=== PATIENT | female | born 1980 | race Caucasian/White ===

== ENCOUNTER → 2017-07-27 11:10 | Outpatient (CLI) | payer OTHER, SELFPAY ==
--- NOTE | 2017-07-27 15:33 | STRESSREP ---
Stress Test Report Treadmill EKG: Resting EKG: Normal sinus rhythm, normal axis, normal intervals, no evidence of previous myocardial infarction. Treadmill EKG: The patient exercised according to a [place] protocol for 10 minutes and 0 seconds achieving a maximum workload of 11.7 METS. Resting heart rate was initially 64 beats minute kaity to maximum 171 beats a minute which represents 94% of the maximal predicted heart rate. Resting blood pressure was 110/68 and kaity to maximum 148/80, and test was terminated due to leg discomfort. During exercise the patient's heart rate increased as expected. Patient has subtle upsloping ST segment depression which did not reach criteria for ischemia. Patient had no arrhythmias noted. No anginal symptoms noted. Conclusions normal adequate treadmill EKG. Negative for ischemia by EKG criteria.8 no anginal symptoms noted. No arrhythmias noted. Average exercise capacity for age. Appropriate blood pressure response to exercise. Test terminated due to leg fatigue. No complications.
== END ==
PROVIDERS: Family Provider Family Medicine; PCP Family Medicine
DX: R06.09 Other forms of dyspnea (principal); R06.02 Shortness of breath
CPT/HCPCS: 93017

== ENCOUNTER 2017-10-20 08:45 | Outpatient (RCR) | payer OTHER, SELFPAY | END 2017-11-06 23:59 | LOC: NS 08:45 | PROVIDERS: Family Provider Family Medicine; PCP Family Medicine; Visit Provider Family Medicine | DX: E66.9 Obesity, unspecified (principal); Z68.33 Body mass index [BMI] 33.0-33.9, adult; Z71.3 Dietary counseling and surveillance | CPT/HCPCS: 97803 ==

== ENCOUNTER 2017-11-09 08:08 | Outpatient (RCR) | payer OTHER, SELFPAY | END 2017-12-07 23:59 | LOC: NS 08:08 | PROVIDERS: Family Provider Family Medicine; PCP Family Medicine; Visit Provider Family Medicine | DX: E66.9 Obesity, unspecified (principal); Z68.33 Body mass index [BMI] 33.0-33.9, adult; Z71.3 Dietary counseling and surveillance | CPT/HCPCS: 97803 ==

== ENCOUNTER 2018-01-04 08:00 | Outpatient (RCR) | payer OTHER, SELFPAY | END 2018-01-04 23:59 | LOC: NS 08:00 | PROVIDERS: Family Provider Family Medicine; PCP Family Medicine; Visit Provider Family Medicine | DX: E66.9 Obesity, unspecified (principal); Z68.33 Body mass index [BMI] 33.0-33.9, adult; Z71.3 Dietary counseling and surveillance | CPT/HCPCS: 97803 ==

== ENCOUNTER → 2018-09-11 | Outpatient (CLI) | payer SELFPAY ==
[2018-09-14 08:16] LABS: HPV APTIMA, High Risk Negative (Negative)
== END | disposition home or self-care (01) ==
LOC: LABSPEC 13:53
PROVIDERS: Visit Provider Obstetrics & Gynecology
DX: Z12.4 Encounter for screening for malignant neoplasm of cervix (principal)
CPT/HCPCS: 87624; 88175; G0145

== ENCOUNTER → 2018-09-19 | Outpatient (CLI) | payer SELFPAY ==
--- NOTE | 2018-09-19 06:58 | BI_ITS ---
MAMMOGRAPHY - BILATERAL SCREENING REASON FOR EXAM: Female, 38 years old. Routine annual screening examination. PERTINENT HISTORY: Grandmother with breast cancer. TECHNIQUE: Digital bilateral breast jennifer (3D mammographic acquisition) in the CC and MLO projections. 2-D mediolateral oblique (MLO) and craniocaudad (CC) views of both breasts were obtained. CAD: Full Field Digital Mammography with Computer Added Detection was performed. COMPARISON: None. Baseline examination. FINDINGS: Breast Composition: There are scattered areas of fibroglandular density. There are no dominant masses or suspicious calcifications. Findings suggest a small benign-appearing bilateral axillary lymph nodes. No other significant abnormalities are identified. BI/SCREEN MAMM (CAD) W/JENNIFER BILAT IMPRESSION: Negative screening mammogram. Yearly followup mammogram recommended. (A) ASSESSMENT CATEGORY: BIRADS Category 2: Benign. A letter regarding these results will be sent to the patient by the facility within 30 days. Approximately 10% of breast cancers are not detected by mammography. A normal mammogram should not delay biopsy of a clinically suspicious abnormality. [id number] Electronically Signed: Wisam Jovel, at 8:30 EDT , Service support ,
== END | disposition home or self-care (01) ==
PROVIDERS: Family Provider Family Medicine; PCP Family Medicine; Referring Provider Obstetrics & Gynecology; Visit Provider Obstetrics & Gynecology
DX: Z12.31 Encounter for screening mammogram for malignant neoplasm of breast (principal)
CPT/HCPCS: 77063; 77067

== ENCOUNTER → 2019-02-13 11:22 | Outpatient (CLI) | payer SELFPAY | PROVIDERS: Visit Provider Obstetrics & Gynecology | DX: Z11.3 Encounter for screening for infections with a predominantly sexual mode of transmission (principal) | CPT/HCPCS: 87491; 87591 ==

== ENCOUNTER → 2019-03-13 11:02 | Outpatient (CLI) | payer SELFPAY ==
[2019-03-13 14:00] LABS: Absolute Lymphocyte Count 3.08 X10^3/uL (0.83-4.51); Absolute Neutrophil Count 9.5 X10^3/uL (2.0-7.7); Basophil# 0.04 X10^3/uL; Basophil% 0.3 % (0-1); Eosinophils% 1.5 % (0-5); Hematocrit 42.4 % (37-47); Hemoglobin 14.3 g/dL (12.0-15.0); Lymphocyte # 3.08 X10^3/ul (4.0); Lymphocyte % 22.8 % (19-41); Mean Corp Hgb Conc 33.7 g/dL (32-36); Mean Corpuscular Hgb 30.2 pg (27.0-32.0); Mean Corpuscular Volume 89.6 fL (81-99); Monocyte# 0.67 X10^3/uL; NRBC Flagged by Analyzer 0 % (0-5); Neutrophil # 9.45 X10^3/uL (2.7-7.7); Platelet Count 225 K/mm3 (150-450); RBC Distribution Width SD 42.6 fl (35.1-43.9); Red Blood Count 4.73 M/mm3 (4.2-5.4); White Blood Count 13.5 K/mm3 (4.4-11.0)
[2019-03-13 14:10] LABS: Amphetamine Urine VISTA NEGATIVE (<1000 ng/mL); Barbiturate Urine VISTA NEGATIVE (< 200 ng/mL); Benzodiazepine Urine VISTA NEGATIVE (< 200 ng/mL); Cocaine Urine VISTA NEGATIVE (< 300 ng/mL); Ecstacy Urine VISTA NEGATIVE (< 500 ng/mL); Methadone Urine VISTA NEGATIVE (< 300 ng/mL); PCP Urine VISTA NEGATIVE (< 25 ng/mL); THC Urine VISTA NEGATIVE (< 50 ng/mL); Vista UDS pH Range 6
[2019-03-13 14:13] LABS: Thyroid Stim Hormone (TSH) 0.86 uIU/mL (0.358-3.74)
[2019-03-13 14:23] LABS: Color, Urine Yellow (Yellow); Glucose, Dipstick Normal (Normal); Ketone-Dipstick Negative (Negative); Leukocyte Esterase-Dipstick Negative /ul (Negative); Nitrite-Dipstick Negative (Negative); Occult Blood-Urine Negative /ul (Negative); Protein-Dipstick Negative (Negative); Urine Bilirubin Dipstick Negative (Negative); Urine Clarity Clear (Clear); Urine Urobilinogen Normal (Normal); Urine pH 6.5 (5.0 - 8.0)
[2019-03-13 15:31] LABS: Chlamydia Trachomatis by PCR Negative (Negative); Neisserai gonorrhoeae by PCR Negative (Negative); Probe Check PASS; Sample Adequacy Control PASS; Specimen Processing Control PASS
[2019-03-14 10:08] LABS: HIV - WCH Non-Reactive (Nonreactive); Hepatitis B Surface Antigen Non-Reactive (Nonreactive); Hepatitis C Antibody Non-Reactive (Nonreactive)
[2019-03-15 03:50] LABS: Prenatal RPR NONREACTIVE (NONREACTIVE)
== END ==
PROVIDERS: Visit Provider Obstetrics & Gynecology
DX: Z34.82 Encounter for supervision of other normal pregnancy, second trimester (principal)
CPT/HCPCS: 36415; 80307; 81002; 84443; 85025; 86703; 86762; 86803; 87340; 87491; 87591

== ENCOUNTER → 2019-06-20 09:07 | Outpatient (CLI) | payer SELFPAY ==
[2019-06-20 10:06] LABS: Hematocrit 36.9 % (37-47); Hemoglobin 12.7 g/dL (12.0-15.0); Mean Corp Hgb Conc 34.4 g/dL (32-36); Mean Corpuscular Hgb 31.7 pg (27.0-32.0); Mean Platelet Vol. 9.8 fl (6.2-12.0); Platelet Count 223 K/mm3 (150-450); RBC Distribution Width CV 13.2 % (11.6-14.6); RBC Distribution Width SD 44.4 fl (35.1-43.9); Red Blood Count 4.01 M/mm3 (4.2-5.4)
[2019-06-20 10:08] LABS: Glucose Challenge Gest 1H 50g 151 mg/dL (70-140)
== END ==
PROVIDERS: Referring Provider Obstetrics & Gynecology; Visit Provider Obstetrics & Gynecology
DX: Z34.83 Encounter for supervision of other normal pregnancy, third trimester (principal)
CPT/HCPCS: 36415; 82950; 85027

== ENCOUNTER → 2019-08-15 | Outpatient (CLI) | payer SELFPAY | END | disposition home or self-care (01) | LOC: LABSPEC 13:47 | PROVIDERS: PCP Family Medicine; Visit Provider Obstetrics & Gynecology | DX: Z36.85 Encounter for antenatal screening for Streptococcus B (principal) | CPT/HCPCS: 87081 ==

== ENCOUNTER 2019-09-04 18:50 | Inpatient (IN) | payer SELFPAY ==
[2019-09-04 10:51] VITALS: BMI 41.3
[2019-09-04 11:00] VITALS: BP 133/76; PULSE 82; TEMP 36.7
--- NOTE | 2019-09-04 12:30 | HP.PCM_ITS ---
- Problem List (1) 39 weeks gestation of Status: Acute (2) Advanced maternal age (AMA), 40 years or greater Status: Acute History Date of Admission: 09/04/19 Final MEAGAN: 09/10/19 Final MEAGAN Source: [place] <20 weeks Gestational age: 39 Weeks and 2 Days History of this : This is a 39 year-old, G [1], P [0], at 39 weeks gestational age. Allergies No Known Allergies Allergy (Verified 09/04/19 10:52) Home Medications: Home Medications Vits [Prenatabs FA ] 1 tab PO DAILY 09/04/19 Smoking Status: Former smoker Alcohol: None Number of Fetus(es): 1 NST - FHR Rate Baby A Baseline: 140 Variability:: Moderate Accelerations:: 15 x 15 Decelerations:: None NST Reactive:: Yes FHR Category:: Category I Uterine Activity:: Q7-10 irregular History Past Pregnancies: Past Pregnancies: None Labs: Course Did the patient receive Yes care? Labs Blood Type: O RH: POSITIVE RPR/VDRL/Syphilis Nonreactive Rubella status Immune HbSAg Negative Date Done: 03/13/19 Chlamydia Negative Gonorrhea Negative HIV/AIDS Non-Reactive Group B Strep: Negative Current Obstetrical History Gestational Diabetes No Incompetent Cervix No Infertility No IUGR No Macrosomia No Hypertension/Pre-eclampsia No Placenta Previa/Abruption No PTL/PROM No Uterine anomaly No Oligohydramnios No Polyhydramnios No Multiple gestation No Past Medical History Asthma No Diabetes No Hypertension No Heart disease No Mitral valve prolapse No Neurologic/Seizure disorder/ No Migraines Kidney disease No Liver disease No Varicosities No Clotting disorders/Hx of DVT No Thyroid Dysfunction No Other medical diseases Yes: PCOS Psychiatric disorders No Major trauma No Abnormal PAP smear No Sleep apnea No Mammogram in the last 2 years Yes: 2019 Social History Marital Status: Alleged father David Hx Smoking Yes Smoking Status Former smoker How long have you used n/a substances (years)? Expected Delivery Method: Spontaneous Vaginal Number of Visits: 12 Review of Systems Constitutional: Denies: Chills, Fever, Weight Change HEENT: Denies: Head Aches, Sinus Congestion, Sinus Drainage Cardiovascular: Denies: Chest Pain, Palpitations Respiratory: Denies: Cough, Shortness of breath at rest, Sputum production Gastrointestinal: Denies: Abdominal Pain, Nausea, Vomiting Genitourinary: Denies: Dysuria Musculoskeletal: Denies: Joint Pain, Joint Tenderness Skin: Denies: Rash, Wounds Neurological: Denies: Numbness, Tingling, Focal weakness Psychiatric: Denies: Anxiety, Depression, Homicidal Ideations, Suicidal Ideations Hematologic/ Lymphatic: Denies: Easy Bruising, Easy Bleeding Physical Exam Vitals: Vital Signs Temp Pulse BP 98.0 F 82 133/76 H 09/04/19 11:00 09/04/19 11:00 09/04/19 11:00 General: Alert, Oriented x3, No apparent distress HEENT: Atraumatic, Normocephalic. Negative for: Thyromegaly, Lymphadenopathy Cardiovascular: Regular rate, Regular Rhythm Lungs: Clear to auscultation Abdomen: Bowel Sounds Present, Gravid Neurological: Deep Tendon Reflexes 2+/4 and Symmetrical, Neuro grossly intact SHELLAC POLISHER: Normal external genitalia. Negative for: Vulvar lesions Estimated gestational size: Appropriate for gestational size Presentation: Cephalic Cervix Dilation (cm): 2 Station: -3 Effacement (%): 50 Assessment/Plan All Active Problems 39 weeks gestation of (Acute) Advanced maternal age (AMA), 40 years or greater (Acute) A/P: This is a 39 year-old, G [1], P [0], at 39 weeks gestational age. Induction scheduled tonight for AMA Reports UC started at 0330. Now irregular 7-10m SVE 2/50/-3 NST Category I Early labor Will admit inpatient Expect Procedure Criteria Procedure Type: Elective COVID Risk Discussion: The surgeon/proceduralist and patient have discussed in detail the risk of exposure to and/or potential harm posed by the COVID-19 virus with having a surgery/procedure at this time versus the risk of delaying the surgery/procedure. It is not possible to know either the risk of delaying the surgery or procedure or chance of getting an infection with perfect accuracy, but a joint decision was made between the patient and the surgeon/proceduralist to proceed at this time with the scheduled surgery/procedure as indicated on the consent form.
[2019-09-04 19:19] VITALS: BP 147/90; PULSE 106; O2SAT 99
[2019-09-04 19:20] VITALS: TEMP 36.4; O2SAT 98
[2019-09-04] MEDS: Lactated Ringers 1,000 ML 50 ML IV (19:30)
[2019-09-04 19:38] VITALS: BP 136/81; PULSE 88
[2019-09-04 19:43] LABS: Absolute Neutrophil Count 7.9 X10^3/uL (2.0-7.7); Basophil# 0.02 X10^3/uL; Basophil% 0.2 % (0-1); Eosinophil# 0.18 X10^3/uL; Eosinophils% 1.5 % (0-5); Hematocrit 37.3 % (37-47); Hemoglobin 12.9 g/dL (12.0-15.0); Lymphocyte % 22.8 % (19-41); Mean Corp Hgb Conc 34.6 g/dL (32-36); Mean Corpuscular Hgb 31.2 pg (27.0-32.0); Mean Corpuscular Volume 90.3 fL (81-99); Mean Platelet Vol. 9.7 fl (6.2-12.0); Monocyte# 0.96 X10^3/uL; Monocyte% 8.1 % (0-10); NRBC Flagged by Analyzer 0 % (0-5); Neutrophil # 7.88 X10^3/uL (2.7-7.7); Neutrophil % 66.7 % (47-70); Platelet Count 235 K/mm3 (150-450); RBC Distribution Width CV 13.2 % (11.6-14.6); RBC Distribution Width SD 42.7 fl (35.1-43.9); Red Blood Count 4.13 M/mm3 (4.2-5.4); White Blood Count 11.8 K/mm3 (4.4-11.0)
[2019-09-04] MEDS: miSOPROStol 25 MCG TABLET VAGINAL (20:14)
--- NOTE | 2019-09-04 20:50 | PCM.PN.OB ---
Patient Problems: Active and Suspected Problems 39 weeks gestation of (Acute) Advanced maternal age (AMA), 40 years or greater (Acute) Subjective: Rating contractions a 3/10, but very irregular still. Objective: SVE 50/-3. UC Q5-10m. NST Category I with FHR baseline 140, +accels, -decels, moderate variability. - Physical Exam Vitals/I&O's: Vital Signs Temp Pulse BP Pulse Ox 98.0 F 76 142/79 H 96 09/05/19 03:30 09/05/19 07:23 09/05/19 07:23 09/05/19 07:23 Weight: 95.9 kg Body Mass Index (BMI) 41.3 Intake and Output for Last 24 Hours 09/03/19 09/04/19 09/05/19 23:59 23:59 23:59 Intake Total 125 / 125 Balance 125 / 125 General: Alert, Oriented x3, Cooperative HEENT: Atraumatic, PERRLA, EOMI, Normocephalic Neck: Supple, No JVD, Negative Carotid Bruits Lungs: Clear to auscultation, Normal air movement Cardiovascular: Regular rate, No murmurs Abdomen: Bowel Sounds Present, Soft, Non Tender Extremities: No edema, Capillary Refill Less than 3 Seconds Skin: No rashes, No breakdown Musculoskeletal: No Tenderness to Palpation of Joints or Extremities Neurological: Cranial nerves II-XII grossly intact Psych/Mental Status: Normal Affect, Appropriate Laboratory Results 09/04/19 19:30: WBC 11.8 H, RBC 4.13 L, Hgb 12.9, Hct 37.3, MCV 90.3, MCH 31.2, MCHC 34.6, RDW Std Deviation 42.7, RDW Coeff of Liset 13.2, Plt Count 235, MPV 9.7, Immature Gran % (Auto) 0.700, Neut % (Auto) 66.7, Lymph % (Auto) 22.8, [place] % (Auto) 8.1, Eos % (Auto) 1.5, Baso % (Auto) 0.2, Absolute Neuts (auto) 7.9 H, Absolute Lymphs (auto) 2.70, Nucleated RBC % 0 09/04/19 19:30: Blood Type O POSITIVE, Antibody Screen NEGATIVE Current Medications Acetaminophen (Tylenol) 325 - 650 mg PO Q4H PRN PRN PRN Reason: Pain Score 1-3/10 Last Admin: 09/05/19 04:08 Dose: 650 mg Documented by: Al Hydroxide/Mg Hydroxide (Mylanta Ii) 15 - 30 ml PO Q4H PRN PRN PRN Reason: INDIGESTION Citric Acid/Sodium Citrate (Bicitra) 30 ml PO X1 PRN PRN Reason: Section Fentanyl Citrate (Sublimaze (100mcg Ampule)) 25 - 50 mcg IV Q2H PRN PRN PRN Reason: Pain Score 4-10/10 Lactated Ringer's () 500 mls @ 999 mls/hr IV .Q31M PRN PRN Reason: Epidural Lactated Ringer's () 500 mls @ 999 mls/hr IV .Q31M PRN PRN Reason: Corrective Measures Lactated Ringer's () 1,000 mls @ 50 mls/hr IV .Q20H [facility] Last Infusion: 09/04/19 22:00 Dose: 0 mls/hr Documented by: Misoprostol (Cytotec) 25 mcg VAGINAL Q4H [facility] Last Admin: 09/05/19 04:13 Dose: 25 mcg Documented by: Ondansetron HCl (Zofran) 4 mg IV Q4H PRN PRN PRN Reason: NAUSEA Prochlorperazine Edisylate (Compazine Iv) 10 mg IV Q6H PRN PRN PRN Reason: NAUSEA Sodium Chloride () 10 - 40 ml IV X1 PRN PRN Reason: SALINE FLUSH Medical Necessity - Tobacco Use Smoking Status: Former smoker Assessment/Plan All Active Problems 39 weeks gestation of (Acute) Advanced maternal age (AMA), 40 years or greater (Acute) A/P: Left earlier to go walking and out to eat, arrived back at 1900 SVE unchanged, Smith 4, Will start Cytotec 25mcg NST Category I Early labor with augmentation for AMA and Maternal obesity with BMI >[address] for
[2019-09-04 22:15] VITALS: TEMP 36.7; O2SAT 98
[2019-09-04 23:26] VITALS: BP 125/65; PULSE 75; TEMP 36.6; O2SAT 99
[2019-09-05] VITALS (23 sets, daily range): BP systolic 81–143; BP diastolic 45–83; PULSE 63–91; TEMP 36.3–37; O2SAT 96–100
[2019-09-05] MEDS: Acetaminophen 325 MG Tablet PO ×2 (00:12→04:08)
[2019-09-05] MEDS: miSOPROStol 25 MCG TABLET VAGINAL ×2 (00:13→04:13)
--- NOTE | 2019-09-05 08:07 | PN.OBGYN_ITS ---
Patient Problems: Active and Suspected Problems 39 weeks gestation of (Acute) Advanced maternal age (AMA), 40 years or greater (Acute) Subjective: Rating contractions as mild, cramping, 2/10. Feeling well. Will order breakfast and then is okay to start Pitocin. Objective: SVE outer os 2-3 with inner os 1cm with tunneling 2/50/-3 soft midposition. NST Category I FHR baseline 130, +accels, -decels, moderate variability. UC Q5-15 minutes. - Physical Exam Vitals/I&O's: Vital Signs Temp Pulse BP Pulse Ox 98.0 F 76 142/79 H 96 09/05/19 03:30 09/05/19 07:23 09/05/19 07:23 09/05/19 07:23 Weight: 95.9 kg Body Mass Index (BMI) 41.3 Intake and Output for Last 24 Hours 09/03/19 09/04/19 09/05/19 23:59 23:59 23:59 Intake Total 125 / 125 Balance 125 / 125 General: Alert, Oriented x3, Cooperative HEENT: Atraumatic, PERRLA, EOMI, Normocephalic Neck: Supple, No JVD, Negative Carotid Bruits Lungs: Clear to auscultation, Normal air movement Cardiovascular: Regular rate, No murmurs Abdomen: Bowel Sounds Present, Soft, Non Tender Extremities: No edema, Capillary Refill Less than 3 Seconds Skin: No rashes, No breakdown Musculoskeletal: No Tenderness to Palpation of Joints or Extremities Neurological: Cranial nerves II-XII grossly intact Psych/Mental Status: Normal Affect, Appropriate Laboratory Results 09/04/19 19:30: WBC 11.8 H, RBC 4.13 L, Hgb 12.9, Hct 37.3, MCV 90.3, MCH 31.2, MCHC 34.6, RDW Std Deviation 42.7, RDW Coeff of Liset 13.2, Plt Count 235, MPV 9.7, Immature Gran % (Auto) 0.700, Neut % (Auto) 66.7, Lymph % (Auto) 22.8, [place] % (Auto) 8.1, Eos % (Auto) 1.5, Baso % (Auto) 0.2, Absolute Neuts (auto) 7.9 H, Absolute Lymphs (auto) 2.70, Nucleated RBC % 0 09/04/19 19:30: Blood Type O POSITIVE, Antibody Screen NEGATIVE Current Medications Acetaminophen (Tylenol) 325 - 650 mg PO Q4H PRN PRN PRN Reason: Pain Score 1-3/10 Last Admin: 09/05/19 04:08 Dose: 650 mg Documented by: Al Hydroxide/Mg Hydroxide (Mylanta Ii) 15 - 30 ml PO Q4H PRN PRN PRN Reason: INDIGESTION Citric Acid/Sodium Citrate (Bicitra) 30 ml PO X1 PRN PRN Reason: Section Fentanyl Citrate (Sublimaze (100mcg Ampule)) 25 - 50 mcg IV Q2H PRN PRN PRN Reason: Pain Score 4-10/10 Lactated Ringer's () 500 mls @ 999 mls/hr IV .Q31M PRN PRN Reason: Epidural Lactated Ringer's () 500 mls @ 999 mls/hr IV .Q31M PRN PRN Reason: Corrective Measures Lactated Ringer's () 1,000 mls @ 50 mls/hr IV .Q20H [facility] Last Infusion: 09/04/19 22:00 Dose: 0 mls/hr Documented by: Misoprostol (Cytotec) 25 mcg VAGINAL Q4H [facility] Last Admin: 09/05/19 04:13 Dose: 25 mcg Documented by: Ondansetron HCl (Zofran) 4 mg IV Q4H PRN PRN PRN Reason: NAUSEA Prochlorperazine Edisylate (Compazine Iv) 10 mg IV Q6H PRN PRN PRN Reason: NAUSEA Sodium Chloride () 10 - 40 ml IV X1 PRN PRN Reason: SALINE FLUSH Medical Necessity - Tobacco Use Smoking Status: Former smoker Assessment/Plan All Active Problems 39 weeks gestation of (Acute) Advanced maternal age (AMA), 40 years or greater (Acute) A/P: Has received three Cytotec doses overnight SVE outer OS 2-3, inner OS 1cm/50/-3 UC irregular mild Q5-12m apart NST Category I After breakfast will start Pitocin AROM planned in 4 hours if able Plan of care reviewed with patient, and bedside RN. All agreeable to plan Expect
[2019-09-05] MEDS: Oxytocin 30 units/NS 500 ml 30 UNITS/500 ML IV.SOLN IV (08:45)
[2019-09-05] MEDS: Acetaminophen 500 MG Tablet 1000 MG PO ×2 (13:09→21:47)
--- NOTE | 2019-09-05 18:00 | PCM.PN.OB ---
Patient Problems: Active and Suspected Problems 39 weeks gestation of (Acute) Advanced maternal age (AMA), 40 years or greater (Acute) Subjective: Rating contraction pain 3-4/10, but still tolerable. Objective: FHR baseline 140, +accels, -decels, moderate variability. UC 2-5m. SVE external OS 5/internal OS closed 40% -3. - Physical Exam Vitals/I&O's: Vital Signs Temp Pulse BP Pulse Ox 98.3 F 83 122/58 H 98 09/06/19 07:20 09/06/19 07:21 09/06/19 07:20 09/06/19 07:21 Weight: 95.9 kg Body Mass Index (BMI) 41.3 Intake and Output for Last 24 Hours 09/04/19 09/05/19 09/06/19 23:59 23:59 23:59 Intake Total 125 / 125 1316.70 / 1316.70 1221.87 / 1221.87 Balance 125 / 125 1316.70 / 1316.70 1221.87 / 1221.87 General: Alert, Oriented x3, Cooperative HEENT: Atraumatic, PERRLA, EOMI, Normocephalic Neck: Supple, No JVD, Negative Carotid Bruits Lungs: Clear to auscultation, Normal air movement Cardiovascular: Regular rate, No murmurs Abdomen: Bowel Sounds Present, Soft, Non Tender Extremities: No edema, Capillary Refill Less than 3 Seconds Skin: No rashes, No breakdown Musculoskeletal: No Tenderness to Palpation of Joints or Extremities Neurological: Cranial nerves II-XII grossly intact Psych/Mental Status: Normal Affect, Appropriate Laboratory Results 09/05/19 09:10: COVID-19 (GERDA) Negative Current Medications Acetaminophen (Tylenol) 325 - 650 mg PO Q4H PRN PRN PRN Reason: Pain Score 1-3/10 Last Admin: 09/05/19 04:08 Dose: 650 mg Documented by: Acetaminophen (Tylenol) 1,000 mg PO Q8 RANJIT Last Admin: 09/06/19 06:14 Dose: Not Given Documented by: Al Hydroxide/Mg Hydroxide (Mylanta Ii) 15 - 30 ml PO Q4H PRN PRN PRN Reason: INDIGESTION Citric Acid/Sodium Citrate (Bicitra) 30 ml PO X1 PRN PRN Reason: Section Ephedrine Sulfate () 10 mg IV Q10M PRN PRN Reason: hypotension Ephedrine Sulfate () 10 mg IM Q30M PRN PRN Reason: hypotension Fentanyl Citrate (Sublimaze (100mcg Ampule)) 25 - 50 mcg IV Q2H PRN PRN PRN Reason: Pain Score 4-10/10 Last Admin: 09/06/19 01:48 Dose: 50 mcg Documented by: Fentanyl/Bupivacaine/Sodium Chlor () 0 ml EPIDURAL UD RANJIT; Protocol Lactated Ringer's () 500 mls @ 999 mls/hr IV .Q31M PRN PRN Reason: Epidural Lactated Ringer's () 500 mls @ 999 mls/hr IV .Q31M PRN PRN Reason: Corrective Measures Lactated Ringer's () 1,000 mls @ 50 mls/hr IV .Q20H RANJIT Last Infusion: 09/06/19 06:12 Dose: 100 mls/hr Documented by: Oxytocin/Sodium Chloride () 30 units in 500 mls @ 2 mls/hr IV .Q250H RANJIT Last Infusion: 09/06/19 06:02 Dose: 2 mls/hr Documented by: Naloxone HCl 4 mg/ Dextrose 504 mls @ 0 mls/hr IV .Q0M PRN; Protocol PRN Reason: To maintain Resp. rate >10 Nalbuphine HCl (Nubain) 5 mg IV Q3H PRN PRN PRN Reason: ITCHING Naloxone HCl (Narcan) 0.02 mg IV Q1M PRN PRN Reason: RR< 10 AND PT UNRESPONSIVE Ondansetron HCl (Zofran) 4 mg IV Q4H PRN PRN PRN Reason: NAUSEA Prochlorperazine Edisylate (Compazine Iv) 10 mg IV Q6H PRN PRN PRN Reason: NAUSEA Sodium Chloride () 10 - 40 ml IV X1 PRN PRN Reason: SALINE FLUSH Last Admin: 09/06/19 01:48 Dose: 10 ml Documented by: Medical Necessity - Tobacco Use Smoking Status: Former smoker Assessment/Plan All Active Problems 39 weeks gestation of (Acute) Advanced maternal age (AMA), 40 years or greater (Acute) A/P: With SVE tunneling and unable to push through entire cervix, but thinning UC with Pitocin at 8u Q2-5m NST Category I Updated MD with SVE and plan of care to continue Pitocin
[2019-09-05] MEDS: Lactated Ringers 1,000 ML 100 ML IV (18:38)
[2019-09-06] VITALS (52 sets, daily range): BP systolic 99–151; BP diastolic 50–77; PULSE 65–111; RESP 16; TEMP 36.4–37.6; O2SAT 77–100
[2019-09-06] MEDS: 0.9% Saline Lock 10 ML Syringe IV (01:48)
[2019-09-06] MEDS: fentaNYL 100 MCG/2 ML Ampul IV ×2 (01:48→10:02)
[2019-09-06] MEDS: Lactated Ringers 1,000 ML 100 ML IV (03:49)
--- NOTE | 2019-09-06 06:43 | PCM.PN.OB ---
Patient Problems: Active and Suspected Problems 39 weeks gestation of (Acute) Advanced maternal age (AMA), 40 years or greater (Acute) Subjective: Feeling rested after having a nap. Ready to have a baby today and slightly discouraged with how long IOL is taking. Objective: UC irregular with irritability. FHR baseline 125, +accels, -decels, moderate variability. SVE external OS 5.5/internal OS 1cm 70%, high. - Physical Exam Vitals/I&O's: Vital Signs Temp Pulse BP Pulse Ox 98.3 F 83 122/58 H 98 09/06/19 07:20 09/06/19 07:21 09/06/19 07:20 09/06/19 07:21 Weight: 95.9 kg Body Mass Index (BMI) 41.3 Intake and Output for Last 24 Hours 09/04/19 09/05/19 09/06/19 23:59 23:59 23:59 Intake Total 125 / 125 1316.70 / 1316.70 1221.87 / 1221.87 Balance 125 / 125 1316.70 / 1316.70 1221.87 / 1221.87 General: Alert, Oriented x3, Cooperative HEENT: Atraumatic, PERRLA, EOMI, Normocephalic Neck: Supple, No JVD, Negative Carotid Bruits Lungs: Clear to auscultation, Normal air movement Cardiovascular: Regular rate, No murmurs Abdomen: Bowel Sounds Present, Soft, Non Tender Extremities: No edema, Capillary Refill Less than 3 Seconds Skin: No rashes, No breakdown Musculoskeletal: No Tenderness to Palpation of Joints or Extremities Neurological: Cranial nerves II-XII grossly intact Psych/Mental Status: Normal Affect, Appropriate Laboratory Results 09/05/19 09:10: COVID-19 (GERDA) Negative Current Medications Acetaminophen (Tylenol) 325 - 650 mg PO Q4H PRN PRN PRN Reason: Pain Score 1-3/10 Last Admin: 09/05/19 04:08 Dose: 650 mg Documented by: Acetaminophen (Tylenol) 1,000 mg PO Q8 RANJIT Last Admin: 09/06/19 06:14 Dose: Not Given Documented by: Al Hydroxide/Mg Hydroxide (Mylanta Ii) 15 - 30 ml PO Q4H PRN PRN PRN Reason: INDIGESTION Citric Acid/Sodium Citrate (Bicitra) 30 ml PO X1 PRN PRN Reason: Section Ephedrine Sulfate () 10 mg IV Q10M PRN PRN Reason: hypotension Ephedrine Sulfate () 10 mg IM Q30M PRN PRN Reason: hypotension Fentanyl Citrate (Sublimaze (100mcg Ampule)) 25 - 50 mcg IV Q2H PRN PRN PRN Reason: Pain Score 4-10/10 Last Admin: 09/06/19 01:48 Dose: 50 mcg Documented by: Fentanyl/Bupivacaine/Sodium Chlor () 0 ml EPIDURAL UD RANJIT; Protocol Lactated Ringer's () 500 mls @ 999 mls/hr IV .Q31M PRN PRN Reason: Epidural Lactated Ringer's () 500 mls @ 999 mls/hr IV .Q31M PRN PRN Reason: Corrective Measures Lactated Ringer's () 1,000 mls @ 50 mls/hr IV .Q20H [facility] Last Infusion: 09/06/19 06:12 Dose: 100 mls/hr Documented by: Oxytocin/Sodium Chloride () 30 units in 500 mls @ 2 mls/hr IV .Q250H RANJIT Last Infusion: 09/06/19 06:02 Dose: 2 mls/hr Documented by: Naloxone HCl 4 mg/ Dextrose 504 mls @ 0 mls/hr IV .Q0M PRN; Protocol PRN Reason: To maintain Resp. rate >10 Nalbuphine HCl (Nubain) 5 mg IV Q3H PRN PRN PRN Reason: ITCHING Naloxone HCl (Narcan) 0.02 mg IV Q1M PRN PRN Reason: RR< 10 AND PT UNRESPONSIVE Ondansetron HCl (Zofran) 4 mg IV Q4H PRN PRN PRN Reason: NAUSEA Prochlorperazine Edisylate (Compazine Iv) 10 mg IV Q6H PRN PRN PRN Reason: NAUSEA Sodium Chloride () 10 - 40 ml IV X1 PRN PRN Reason: SALINE FLUSH Last Admin: 09/06/19 01:48 Dose: 10 ml Documented by: Medical Necessity - Tobacco Use Smoking Status: Former smoker Assessment/Plan All Active Problems 39 weeks gestation of (Acute) Advanced maternal age (AMA), 40 years or greater (Acute) A/P: Sterile speculum exam to assess cervix with internal OS 1cm Able to AROM with hook, clear fluid noted Will restart Pitocin Patient plans IV medication for pain management, but educated on Nitrous Oxide and epidural if wishing Dr. Cruz to place internals this AM Expect
[2019-09-06] MEDS: Acetaminophen 500 MG Tablet 1000 MG PO ×2 (08:38→16:22)
[2019-09-06] MEDS: Lactated Ringers 1,000 ML 200 ML IV ×2 (10:58→21:41)
[2019-09-06] MEDS: fentaNYL-bupivacaine (epidural) 100 ML BAG EPIDURAL ×3 (11:45→19:30)
[2019-09-06] MEDS: ePHEDrine Sulfate 50 MG/ML Ampul 10 MG IV (12:50)
--- NOTE | 2019-09-06 15:23 | PCM.PN.OB ---
Patient Problems: Active and Suspected Problems 39 weeks gestation of (Acute) Advanced maternal age (AMA), 40 years or greater (Acute) Subjective: No pain with epidural in place Objective: SVE 7/75/-3, Pitocin at 8u, NST Category I, UC 3-5m - Physical Exam Vitals/I&O's: Vital Signs Temp Pulse BP Pulse Ox 97.9 F 77 109/58 L 100 09/06/19 14:05 09/06/19 14:59 09/06/19 14:59 09/06/19 13:23 Weight: 95.9 kg Body Mass Index (BMI) 41.3 Intake and Output for Last 24 Hours 09/04/19 09/05/19 09/06/19 23:59 23:59 23:59 Intake Total 125 / 125 1316.70 / 1316.70 / Balance 125 / 125 1316.70 / 1316.70 General: Alert, Oriented x3, Cooperative HEENT: Atraumatic, PERRLA, EOMI, Normocephalic Neck: Supple, No JVD, Negative Carotid Bruits Lungs: Clear to auscultation, Normal air movement Cardiovascular: Regular rate, No murmurs Abdomen: Bowel Sounds Present, Soft, Non Tender Extremities: No edema, Capillary Refill Less than 3 Seconds Skin: No rashes, No breakdown Musculoskeletal: No Tenderness to Palpation of Joints or Extremities Neurological: Cranial nerves II-XII grossly intact Psych/Mental Status: Normal Affect, Appropriate Current Medications Acetaminophen (Tylenol) 325 - 650 mg PO Q4H PRN PRN PRN Reason: Pain Score 1-3/10 Last Admin: 09/05/19 04:08 Dose: 650 mg Documented by: Acetaminophen (Tylenol) 1,000 mg PO Q8 RANJIT Last Admin: 09/06/19 08:38 Dose: 1,000 mg Documented by: Al Hydroxide/Mg Hydroxide (Mylanta Ii) 15 - 30 ml PO Q4H PRN PRN PRN Reason: INDIGESTION Citric Acid/Sodium Citrate (Bicitra) 30 ml PO X1 PRN PRN Reason: Section Ephedrine Sulfate () 10 mg IV Q10M PRN PRN Reason: hypotension Last Admin: 09/06/19 12:50 Dose: 10 mg Documented by: Ephedrine Sulfate () 10 mg IM Q30M PRN PRN Reason: hypotension Ephedrine Sulfate () 10 mg IV Q10M PRN PRN Reason: hypotension Ephedrine Sulfate () 10 mg IM Q30M PRN PRN Reason: hypotension Fentanyl Citrate (Sublimaze (100mcg Ampule)) 25 - 50 mcg IV Q2H PRN PRN PRN Reason: Pain Score 4-10/10 Last Admin: 09/06/19 10:02 Dose: 50 mcg Documented by: Fentanyl/Bupivacaine/Sodium Chlor () 0 ml EPIDURAL UD RANJIT; Protocol Fentanyl/Bupivacaine/Sodium Chlor () 0 ml EPIDURAL UD RANJIT; Protocol Lactated Ringer's () 500 mls @ 999 mls/hr IV .Q31M PRN PRN Reason: Epidural Lactated Ringer's () 500 mls @ 999 mls/hr IV .Q31M PRN PRN Reason: Corrective Measures Lactated Ringer's () 1,000 mls @ 50 mls/hr IV .Q20H RANJIT Last Admin: 09/06/19 10:58 Dose: 200 mls/hr Documented by: Oxytocin/Sodium Chloride () 30 units in 500 mls @ 2 mls/hr IV .Q250H RANJIT Last Infusion: 09/06/19 15:10 Dose: 10 mls/hr Documented by: Naloxone HCl 4 mg/ Dextrose 504 mls @ 0 mls/hr IV .Q0M PRN; Protocol PRN Reason: To maintain Resp. rate >10 Naloxone HCl 4 mg/ Dextrose 504 mls @ 0 mls/hr IV .Q0M PRN; Protocol PRN Reason: To maintain Resp. rate >10 Nalbuphine HCl (Nubain) 5 mg IV Q3H PRN PRN PRN Reason: ITCHING Nalbuphine HCl (Nubain) 5 mg IV Q3H PRN PRN PRN Reason: ITCHING Naloxone HCl (Narcan) 0.02 mg IV Q1M PRN PRN Reason: RR< 10 AND PT UNRESPONSIVE Naloxone HCl (Narcan) 0.02 mg IV Q1M PRN PRN Reason: RR< 10 AND PT UNRESPONSIVE Ondansetron HCl (Zofran) 4 mg IV Q4H PRN PRN PRN Reason: NAUSEA Prochlorperazine Edisylate (Compazine Iv) 10 mg IV Q6H PRN PRN PRN Reason: NAUSEA Sodium Chloride () 10 - 40 ml IV X1 PRN PRN Reason: SALINE FLUSH Last Admin: 09/06/19 01:48 Dose: 10 ml Documented by: Medical Necessity - Tobacco Use Smoking Status: Former smoker Assessment/Plan All Active Problems 39 weeks gestation of (Acute) Advanced maternal age (AMA), 40 years or greater (Acute) A/P: Pitocin 8u Active labor Epidural in place for pain management NST Category I Expect
[2019-09-06] MEDS: Lactated Ringers 500 ML 999 ML IV (16:29)
--- NOTE | 2019-09-06 17:54 | PCM.PN.OB ---
Patient Problems: Active and Suspected Problems 39 weeks gestation of (Acute) Advanced maternal age (AMA), 40 years or greater (Acute) Subjective: Comfortable with epidural, but still able to feel contractions with slight pressure. Objective: VSS. SVE 9/ant lip/-1. FHR baseline 130, +accels, -decels, moderate variability. UC1.5-3m - Physical Exam Vitals/I&O's: Vital Signs Temp Pulse BP Pulse Ox 97.9 F 84 124/53 H 100 09/06/19 14:05 09/06/19 17:04 09/06/19 17:04 09/06/19 13:23 Weight: 95.9 kg Body Mass Index (BMI) 41.3 Intake and Output for Last 24 Hours 09/04/19 09/05/19 09/06/19 23:59 23:59 23:59 Intake Total 125 / 125 1316.70 / 1316.70 3483.93 / 3483.93 Balance 125 / 125 1316.70 / 1316.70 3483.93 / 3483.93 General: Alert, Oriented x3, Cooperative HEENT: Atraumatic, PERRLA, EOMI, Normocephalic Neck: Supple, No JVD, Negative Carotid Bruits Lungs: Clear to auscultation, Normal air movement Cardiovascular: Regular rate, No murmurs Abdomen: Bowel Sounds Present, Soft, Non Tender Extremities: No edema, Capillary Refill Less than 3 Seconds Skin: No rashes, No breakdown Musculoskeletal: No Tenderness to Palpation of Joints or Extremities Neurological: Cranial nerves II-XII grossly intact Psych/Mental Status: Normal Affect, Appropriate Current Medications Acetaminophen (Tylenol) 325 - 650 mg PO Q4H PRN PRN PRN Reason: Pain Score 1-3/10 Last Admin: 09/05/19 04:08 Dose: 650 mg Documented by: Acetaminophen (Tylenol) 1,000 mg PO Q8 RANJIT Last Admin: 09/06/19 16:22 Dose: 1,000 mg Documented by: Al Hydroxide/Mg Hydroxide (Mylanta Ii) 15 - 30 ml PO Q4H PRN PRN PRN Reason: INDIGESTION Citric Acid/Sodium Citrate (Bicitra) 30 ml PO X1 PRN PRN Reason: Section Ephedrine Sulfate () 10 mg IV Q10M PRN PRN Reason: hypotension Last Admin: 09/06/19 12:50 Dose: 10 mg Documented by: Ephedrine Sulfate () 10 mg IM Q30M PRN PRN Reason: hypotension Ephedrine Sulfate () 10 mg IV Q10M PRN PRN Reason: hypotension Ephedrine Sulfate () 10 mg IM Q30M PRN PRN Reason: hypotension Fentanyl Citrate (Sublimaze (100mcg Ampule)) 25 - 50 mcg IV Q2H PRN PRN PRN Reason: Pain Score 4-10/10 Last Admin: 09/06/19 10:02 Dose: 50 mcg Documented by: Fentanyl/Bupivacaine/Sodium Chlor () 0 ml EPIDURAL UD RANJIT; Protocol Last Admin: 09/06/19 11:45 Dose: 10 ml Documented by: Fentanyl/Bupivacaine/Sodium Chlor () 0 ml EPIDURAL UD RANJIT; Protocol Lactated Ringer's () 500 mls @ 999 mls/hr IV .Q31M PRN PRN Reason: Epidural Last Infusion: 09/06/19 17:00 Dose: Infused Documented by: Lactated Ringer's () 500 mls @ 999 mls/hr IV .Q31M PRN PRN Reason: Corrective Measures Lactated Ringer's () 1,000 mls @ 50 mls/hr IV .Q20H RANJIT Last Infusion: 09/06/19 16:26 Dose: Infused Documented by: Oxytocin/Sodium Chloride () 30 units in 500 mls @ 2 mls/hr IV .Q250H RANJIT Last Infusion: 09/06/19 17:22 Dose: 12 mls/hr Documented by: Naloxone HCl 4 mg/ Dextrose 504 mls @ 0 mls/hr IV .Q0M PRN; Protocol PRN Reason: To maintain Resp. rate >10 Naloxone HCl 4 mg/ Dextrose 504 mls @ 0 mls/hr IV .Q0M PRN; Protocol PRN Reason: To maintain Resp. rate >10 Nalbuphine HCl (Nubain) 5 mg IV Q3H PRN PRN PRN Reason: ITCHING Nalbuphine HCl (Nubain) 5 mg IV Q3H PRN PRN PRN Reason: ITCHING Naloxone HCl (Narcan) 0.02 mg IV Q1M PRN PRN Reason: RR< 10 AND PT UNRESPONSIVE Naloxone HCl (Narcan) 0.02 mg IV Q1M PRN PRN Reason: RR< 10 AND PT UNRESPONSIVE Ondansetron HCl (Zofran) 4 mg IV Q4H PRN PRN PRN Reason: NAUSEA Prochlorperazine Edisylate (Compazine Iv) 10 mg IV Q6H PRN PRN PRN Reason: NAUSEA Sodium Chloride () 10 - 40 ml IV X1 PRN PRN Reason: SALINE FLUSH Last Admin: 09/06/19 01:48 Dose: 10 ml Documented by: Medical Necessity - Tobacco Use Smoking Status: Former smoker Assessment/Plan All Active Problems 39 weeks gestation of (Acute) Advanced maternal age (AMA), 40 years or greater (Acute) A/P: SVE 9/ant lip/-1 with caput UC 1.5-3m NST Category I Epidural in place and pain well controlled Expect
[2019-09-06] MEDS: Sodium Citrate/Citric Acid 30 ML UDC PO (22:41)
--- NOTE | 2019-09-06 22:45 | PCM.OPRPT ---
Delivery Classification: NELI Final MEAGAN: 09/10/19 Final MEAGAN Source: US <20 weeks Gestational age: 39 Weeks and 3 Days service learning coordinator: Joshua Gentile Type of Anesthesia:: Epidural - With Duramorph Date of Procedure: 09/06/19 Pre-Operative Diagnosis: Failure to Progress and Failure to Descend Post-Operative Diagnosis: Failure to Progress and Failure to Descend Indications for : Failure to Progress, Suspected Abruptio Placenta, Arrrest of Descent, Suspected cephalopelvic disproportion Description of Procedure: Surgeon: Brian Cruz MD, FACOG Anesthesia: Geetha Fajardo CRNA Procedure: Primary Low Transverse Cervical Caesarean Section Findings: Viable female infant with Apgars of 8/9 in occiput anterior presentation with clear amniotic fluid and normal three-vessel placenta. Indication: This is a 39-year-old who presented for induction at 39+ weeks gestation. care has otherwise been uneventful except for advanced maternal age. Patient progressed slowly to complete and pushing and despite pushing for approximately 4 hours the head failed to descend past -1 station. Some increased vaginal bleeding was also noted for last 2 hours of pushing. Cervix was also beginning to swell and it was felt that the pelvis was too contracted and the head too high to allow safe application of vacuum for extraction attempt. Given this it was decided to proceed with primary section. The patient and her were counseled regarding the risk and indications of this procedure including the possibility of bleeding infection and injury to surrounding structures such as bowel bladder. All questions were answered. Procedure: Patient was taken to the operating room where after epidural catheter was redosed, the patient was prepped and draped in usual sterile fashion; Avelar catheter had been previously placed. The abdomen was entered through a Pfannenstiel incision and peritoneum was entered bluntly. After developing a bladder flap on the lower uterine segment a low transverse incision was made on the uterus and head was easily delivered onto the operative field the nose mouth and oropharynx were bulb suctioned. Subsequently a viable female was born with Apgars of 8/9. The was noted to cry move all extremities vigorously on the operative field. The umbilical cord was doubly clamped and ligated and handed to the nursery personnel who were present for the delivery. Placenta was delivered and noted to be 3 vessels and normal. Uterus was exteriorized and remaining placental tissue was removed. The uterus was then closed in 2 layers first with running locked 0 Vicryl suture followed by a second imbricating layer with 0 Vicryl suture. 0 Vicryl suture was then used in a horizontal mattress interrupted fashion to affect final hemostasis of the uterine incision line. Normal fallopian tubes and ovaries were visualized and the uterus was returned to the pelvis. Hemostasis was noted and rectus abdominis muscles were reapproximated in the midline with interrupted Number 0 Vicryl suture in a horizontal mattress fashion. Fascia was closed with running Number 1 PDS Strata fix suture. Subcutaneous tissue was irrigated with copious amounts of saline solution and then closed with running 3-0 Vicryl suture. Skin was closed with 4-0 monocryl suture in a running subcuticular fashion. Steri strips and a Mepilex dressing were placed across the incision. The patient tolerated the procedure well and was taken to the recovery room in satisfactory condition. Sponge, needle, and instrument counts were all reportedly correct. EBL was less than 500 cc. Ancef 2 gms IV was given prior to the procedure. Amniotic Fluid Description: Clear Placenta Disposition: [facility] Drain: Avelar to straight drain Fluids Replaced: Crystalloid Cord Entanglement: None Cord Vessel Description: 3 Vessels Esitmated Blood Loss (ml): 500 cc Gender: Male (1 minute): 8 (5 minute): 9 Antibiotic Given: Ancef 2 grams IV x1 Pt instructed on risks of surgery: Bleeding, Infection, Injury to surrounding structure(s) including bowel and bladder - Admit VTE Documentation VTE Present on Admission: Yes VTE Mechan Device Prophylaxis: SCD's VTE Pharm Prophylaxis ordered?: Yes
[2019-09-06] MEDS: Cefazolin 2 GM in 0.9% Normal Saline 100 ML IV (22:49)
--- NOTE | 2019-09-06 22:52 | DCINST_ITS ---
<Brian Cruz - Last Filed: 09/06/19 22:52> Discharge Diet: No Restrictions Discharge Activity: May not drive while taking narcotic pain medications., May Shower, May Take a Tub Bath May resume sexual activity in: 4-6 weeks Lifting Restrictions: 20 pounds Additional Activity Instructions:: Nothing in the vagina for 4-6 weeks. You may return to work/school in 6 weeks. Call your doctor if your incision/area has: Continuous Slow Oozing, Sudden Increased Bleeding, Increased Pain/ Swelling, Increased Redness, Foul Smelling Discharge Call your doctor if you observe: Fever of 101 or Higher, Inability to urinate, Inability to have a bowel movement, Using more than one pad per hour Additional Instructions: If you experience any of the following, contact your healthcare provider. * Bleeding that soaks a pad every hour for 2 hours * Fever 100.4 or higher * Unrelieved incision or abdominal pain * Swelling, redness, discharge or bleeding from your incision or episiotomy site * Your incision begins to separate * Problems urinating (including inability to urinate or burning while urinating). * Visual changes * Severe headache * Flu-like symptoms * Pain or redness in one of both of your breasts * Pain, warmth, tenderness or swelling in your legs, especially the calf area * Frequent nausea and vomiting * Symptoms of depression or anxiety If you experience any of the following, call 911 or go to the nearest Emergency Room. * Chest pain * Problems breathing * Seizure activity * Partial or complete paralysis of a body part, slurred speech, weakness or drooping of the face, or a sudden inability to walk or hold your balance Allergies/Adverse Reactions: Allergies ibuprofen Allergy (Verified 09/04/19 19:53) Hives Only allergic to blue gel capsules. Ok for regular ibprofen scopolamine Adverse Reaction (Verified 09/04/19 19:54) PT UNSURE OF REACTION Medications to take at Discharge Vits [Prenatabs FA ] 1 tab PO DAILY 09/04/19 Docusate Sodium [Colace] 100 mg PO BID PRN PRN #60 cap 09/06/19 Oxycodone [Oxyir] 5 mg PO Q6H PRN PRN 7 Days #20 tab 09/06/19 The following prescriptions were given: Docusate Sodium [Colace] 100 mg PO BID PRN PRN #60 cap PRN Reason: Constipation Transmission Status: Received by [id number] Oxycodone [Oxyir] 5 mg PO Q6H PRN PRN 7 Days #20 tab PRN Reason: Pain Score 6-10/10 Transmission Status[facility] Follow-Up: Call to make an appointment with your doctor for an incision check in 1-2 weeks. You will also need a 6 week post- follow up appointment. Test results from this visit will be discussed in further detail at your follow- up appointment, if applicable. Please Follow Up With: Brian Cruz MD - [phone] When: Call to make an appointment for an incision check in 2 weeks. Primary Care Physician: Raymon Lopes MD [Primary Care Provider] - <Myranda Hedrick - Last Filed: 09/08/19 10:55> Additional Instructions: If you experience any of the following, contact your healthcare provider. * Bleeding that soaks a pad every hour for 2 hours * Fever 100.4 or higher * Unrelieved incision or abdominal pain * Swelling, redness, discharge or bleeding from your incision or episiotomy site * Your incision begins to separate * Problems urinating (including inability to urinate or burning while urinating). * Visual changes * Severe headache * Flu-like symptoms * Pain or redness in one of both of your breasts * Pain, warmth, tenderness or swelling in your legs, especially the calf area * Frequent nausea and vomiting * Symptoms of depression or anxiety If you experience any of the following, call 911 or go to the nearest Emergency Room. * Chest pain * Problems breathing * Seizure activity * Partial or complete paralysis of a body part, slurred speech, weakness or drooping of the face, or a sudden inability to walk or hold your balance Follow-Up: Call to make an appointment with your doctor for an incision check in 1-2 weeks. You will also need a 6 week post- follow up appointment. Test results from this visit will be discussed in further detail at your follow- up appointment, if applicable.
[2019-09-06] MEDS: Ondansetron 4 MG/2 ML Vial IV (23:21)
[2019-09-06] MEDS: Ketorolac 30 MG/ML Syringe IV (23:30)
[2019-09-07] VITALS (28 sets, daily range): BP systolic 115–141; BP diastolic 54–94; PULSE 74–106; RESP 12–20; TEMP 36.4–37.2; O2SAT 94–100
[2019-09-07] MEDS: Oxytocin 30 units/NS 500 ml 30 UNITS/500 ML IV.SOLN 167 UNITS IV (00:15)
[2019-09-07] MEDS: Lactated Ringers 1,000 ML 100 ML IV (03:17)
[2019-09-07] MEDS: Acetaminophen 500 MG Tablet 1000 MG PO ×3 (05:37→18:11)
[2019-09-07 06:19] LABS: Hematocrit 33.9 % (37-47); Hemoglobin 11.9 g/dL (12.0-15.0); Mean Corp Hgb Conc 35.1 g/dL (32-36); Mean Corpuscular Hgb 32.1 pg (27.0-32.0); Mean Corpuscular Volume 91.4 fL (81-99); Platelet Count 185 K/mm3 (150-450); RBC Distribution Width CV 13.2 % (11.6-14.6); RBC Distribution Width SD 43.2 fl (35.1-43.9); Red Blood Count 3.71 M/mm3 (4.2-5.4); White Blood Count 20.8 K/mm3 (4.4-11.0)
[2019-09-07] MEDS: Lactated Ringers 500 ML 999 ML IV (06:25)
[2019-09-07] MEDS: Cefazolin 1 GM/50 ML BAG IV ×2 (07:12→15:08)
--- NOTE | 2019-09-07 08:41 | PN.OBGYN_ITS ---
Patient Problems: Active and Suspected Problems 39 weeks gestation of (Acute) Advanced maternal age (AMA), 40 years or greater (Acute) Subjective: Very tired, but with IV medicine not having any pain. Hasn't been out of bed yet. She is about to eat breakfast. Objective: VSS. Dressing is CDI. Fundus is firm, midline, u/1. - Physical Exam Vitals/I&O's: Vital Signs Temp Pulse Resp BP Pulse Ox 98.3 F 93 16 128/80 H 95 09/07/19 08:31 09/07/19 08:31 09/07/19 08:31 09/07/19 08:31 09/07/19 08:31 Oxygen Delivery Method Room Air Weight: 95.9 kg Body Mass Index (BMI) 41.3 Intake and Output for Last 24 Hours 09/05/19 09/06/19 09/07/19 23:59 23:59 23:59 Intake Total 1316.70 / 1316.70 3885.77 / 3885.77 1340.00 / 1340.00 Output Total 225 / 225 Balance 1316.70 / 1316.70 3885.77 / 3885.77 1115.00 / 1115.00 General: Alert, Oriented x3, Cooperative HEENT: Atraumatic, PERRLA, EOMI, Normocephalic Neck: Supple, No JVD, Negative Carotid Bruits Lungs: Clear to auscultation, Normal air movement Cardiovascular: Regular rate, No murmurs Abdomen: Bowel Sounds Present, Soft, Non Tender Extremities: No edema, Capillary Refill Less than 3 Seconds Skin: No rashes, No breakdown Musculoskeletal: No Tenderness to Palpation of Joints or Extremities Neurological: Cranial nerves II-XII grossly intact Psych/Mental Status: Normal Affect, Appropriate Laboratory Results 09/07/19 05:42: WBC 20.8 H, RBC 3.71 L, Hgb 11.9 L, Hct 33.9 L, MCV 91.4, MCH 32.1 H, MCHC 35.1, RDW Std Deviation 43.2, RDW Coeff of Liset 13.2, Plt Count 185, MPV 10.0 Current Medications Acetaminophen (Tylenol) 1,000 mg PO Q6 RANJIT Last Admin: 09/07/19 05:37 Dose: 1,000 mg Documented by: Bisacodyl (Dulcolax) 10 mg RECTAL UD PRN PRN Reason: If no BM Diphenhydramine HCl (Benadryl) 25 mg PO Q6H PRN PRN PRN Reason: ITCHING Stop: 09/08/19 01:06 Enoxaparin Sodium (Lovenox) 40 mg SC DAILY [facility] Hydrocortisone (Hytone) 1 applic TOPICAL TID PRN PRN; Protocol PRN Reason: Discomfort Lactated Ringer's () 1,000 mls @ 100 mls/hr IV .Q10H [facility] Last Infusion: 09/07/19 07:12 Dose: 0 mls/hr Documented by: Cefazolin Sodium () 1 gm in 50 mls @ 150 mls/hr IV Q8H [facility] Stop: 09/07/19 15:19 Last Admin: 09/07/19 07:12 Dose: 150 mls/hr Documented by: Naloxone HCl 4 mg/ Dextrose 504 mls @ 0 mls/hr IV .Q0M PRN; Protocol PRN Reason: Respiratory depression Ibuprofen (Motrin) 600 mg PO Q6 RANJIT Ketorolac Tromethamine (Toradol (Bkc)) 30 mg IV Q6H [facility] Stop: 09/07/19 17:31 Last Admin: 09/07/19 06:02 Dose: Not Given Documented by: Measles/Mumps/Rubella Vaccine Live (M-M-R Ii) 0.5 ml SC .ONCE ONE Stop: 09/07/19 10:01 Last Admin: 09/07/19 01:17 Dose: Not Given Documented by: Methylergonovine Maleate (Methergine) 0.2 mg IM X1 PRN PRN Reason: Uterine Atony Nalbuphine HCl (Nubain) 5 mg IV Q3H PRN PRN PRN Reason: ITCHING Stop: 09/08/19 01:06 Naloxone HCl (Narcan) 0.02 mg IV Q1M PRN PRN Reason: RR <10 and pt unresponsive Ondansetron HCl (Zofran) 4 mg IV Q4H PRN PRN PRN Reason: Nausea Oxycodone HCl (Oxyir) 5 - 10 mg PO Q4H PRN PRN PRN Reason: Pain Score 4-10/10 Prochlorperazine Edisylate (Compazine Iv) 10 mg IV Q6H PRN PRN PRN Reason: NAUSEA Senna/Docusate Sodium (Senokot-S, Pamela-Colace) 0 tablet PO DAILY RANJIT Simethicone (Mylicon) 80 mg PO PCHS PRN PRN Reason: Indigestion/stomach pain Sodium Chloride () 5 - 15 ml IV UD PRN PRN Reason: SALINE FLUSH Medical Necessity - Tobacco Use Smoking Status: Former smoker Assessment/Plan All Active Problems 39 weeks gestation of (Acute) Advanced maternal age (AMA), 40 years or greater (Acute) A/P: POD #1 S/P Primary for failure to descend mother Dyad stable Continue postop orders Wants to discharge tomorrow if able
[2019-09-07] MEDS: Ketorolac 30 MG/ML Syringe IV ×2 (11:06→18:12)
[2019-09-07] MEDS: Enoxaparin 40 MG/0.4 ML Syringe SC (11:07)
[2019-09-07] MEDS: 0.9% Saline Lock 10 ML Syringe IV ×3 (11:07→18:13)
[2019-09-07] MEDS: Senna/Docusate Sodium 1 Tablet PO (11:07)
[2019-09-08 00:07] VITALS: RESP 18; O2SAT 97
[2019-09-08] MEDS: Acetaminophen 500 MG Tablet 1000 MG PO ×2 (01:54→11:56)
[2019-09-08 01:58] VITALS: BP 145/84; PULSE 84; RESP 16; TEMP 36.9
[2019-09-08] MEDS: Ibuprofen 600 MG Tablet PO ×2 (03:41→10:00)
[2019-09-08] MEDS: Enoxaparin 40 MG/0.4 ML Syringe SC (09:10)
[2019-09-08 09:14] VITALS: BP 147/75; PULSE 84; RESP 16; TEMP 36.4; O2SAT 97
--- NOTE | 2019-09-08 11:05 | PN.OBGYN_ITS ---
Patient Problems: Active and Suspected Problems 39 weeks gestation of (Acute) Advanced maternal age (AMA), 40 years or greater (Acute) Subjective: Ready to go home today. Up in bathroom. Has been urinating well, passing flatus, tolerating regular diet and pain is well controlled with oral pain medication. Feels a little swollen in her abdomen and feet. Objective: VSS with systolic BP readings slightly elevated in the 140s. Bilateral +2 pedal edema. Fundus is firm, midline, u/2. Surgical incision ENRIQUETA with steri strips dry and intact. Lochia rubra moderate. - Physical Exam Vitals/I&O's: Vital Signs Temp Pulse Resp BP Pulse Ox 97.6 F L 84 16 147/75 H 97 09/08/19 09:14 09/08/19 09:14 09/08/19 09:14 09/08/19 09:14 09/08/19 09:14 Oxygen Delivery Method Room Air Weight: 95.9 kg Body Mass Index (BMI) 41.3 Intake and Output for Last 24 Hours 09/06/19 09/07/19 09/08/19 23:59 23:59 23:59 Intake Total 3885.77 / 3885.77 1811.67 / 1811.67 Output Total 800 / 800 Balance 3885.77 / 3885.77 1011.67 / 1011.67 General: Alert, Oriented x3, Cooperative HEENT: Atraumatic, PERRLA, EOMI, Normocephalic Neck: Supple, No JVD, Negative Carotid Bruits Lungs: Clear to auscultation, Normal air movement Cardiovascular: Regular rate, No murmurs Abdomen: Bowel Sounds Present, Soft, Non Tender, - - incision [employer] Extremities: No edema, Capillary Refill Less than 3 Seconds, Edema - bilateral +2 pedal edema Skin: No rashes, No breakdown, Incision - Abdominal Musculoskeletal: No Tenderness to Palpation of Joints or Extremities Neurological: Cranial nerves II-XII grossly intact Psych/Mental Status: Normal Affect, Appropriate Current Medications Acetaminophen (Tylenol) 1,000 mg PO Q6 [facility] Last Admin: 09/08/19 01:54 Dose: 1,000 mg Documented by: Bisacodyl (Dulcolax) 10 mg RECTAL UD PRN PRN Reason: If no BM Enoxaparin Sodium (Lovenox) 40 mg SC DAILY [facility] Last Admin: 09/08/19 09:10 Dose: 40 mg Documented by: Hydrocortisone (Hytone) 1 applic TOPICAL TID PRN PRN; Protocol PRN Reason: Discomfort Lactated Ringer's () 1,000 mls @ 100 mls/hr IV .Q10H [facility] Last Admin: 09/07/19 23:36 Dose: Not Given Documented by: Naloxone HCl 4 mg/ Dextrose 504 mls @ 0 mls/hr IV .Q0M PRN; Protocol PRN Reason: Respiratory depression Ibuprofen (Motrin) 600 mg PO Q6 [facility] Last Admin: 09/08/19 10:00 Dose: 600 mg Documented by: Methylergonovine Maleate (Methergine) 0.2 mg IM X1 PRN PRN Reason: Uterine Atony Naloxone HCl (Narcan) 0.02 mg IV Q1M PRN PRN Reason: RR <10 and pt unresponsive Ondansetron HCl (Zofran) 4 mg IV Q4H PRN PRN PRN Reason: Nausea Oxycodone HCl (Oxyir) 5 - 10 mg PO Q4H PRN PRN PRN Reason: Pain Score 4-10/10 Prochlorperazine Edisylate (Compazine Iv) 10 mg IV Q6H PRN PRN PRN Reason: NAUSEA Senna/Docusate Sodium (Senokot-S, Pamela-Colace) 0 tablet PO DAILY [facility] Last Admin: 09/07/19 11:07 Dose: 2 tablet Documented by: Simethicone (Mylicon) 80 mg PO PCHS PRN PRN Reason: Indigestion/stomach pain Sodium Chloride () 5 - 15 ml IV UD PRN PRN Reason: SALINE FLUSH Last Admin: 09/07/19 18:13 Dose: 10 ml Documented by: Medical Necessity - Tobacco Use Smoking Status: Former smoker Assessment/Plan All Active Problems 39 weeks gestation of (Acute) Advanced maternal age (AMA), 40 years or greater (Acute) A/P: S/P Primary Csection POD #2 Pain well controlled with oral medication daughter Incision has surgical dressing off, steri strips dry and intact To check BP at home QD. Reviewed signs of Pre-e To discharge home today with instructions on 2 week incision check and 6 week routine PP visit
[2019-09-08 12:02] VITALS: BP 116/77; PULSE 73
--- NOTE | 2019-09-11 19:42 | PCM.DC.BLA ---
Discharge Summary Date of Admission: 09/04/19 Date of Discharge: 09/08/19 Summary: Admission diagnosis: Term intrauterine Discharge diagnosis: Failure to Progress, Suspected Abruptio Placenta, Arrest of Descent, Suspected cephalopelvic disproportion Procedure: Primary low transverse cervical section HPI: Uneventful care. PE: Unremarkable. Hospital Course: The patient is a 39 year old G 1 P 0 who presented to and D at 39+ weeks gestation for induction due to advanced maternal age. She subsequently had a primary for Failure to Progress, Suspected Abruptio Placenta, Arrrest of Descent, Suspected cephalopelvic disproportion. Postoperatively she did well demonstrating a stable HGB on POD 1 and bowel fxn by POD 2 at which time it was felt she was ready for discharge. Homegoing Instruction: She was instructed not to drive for several days or if using narcotic pain medication, not to put anything in the vagina for 4 weeks, not to lift >25 lbs for 6 weeks and to call the office for an appointment in 2 weeks and 6 weeks. Discharge Medications: She was given a prescription for Oxycodone and Colace and also plans to use Aleve or Motrin or Tylenol at home as needed for pain and constipation. - Physical Exam Vitals/I&O's: Vital Signs Temp Pulse Resp BP Pulse Ox 97.6 F L 73 16 116/77 97 09/08/19 09:14 09/08/19 12:02 09/08/19 09:14 09/08/19 12:02 09/08/19 09:14 Oxygen Delivery Method Room Air Weight: 211 lb 6.773 oz Body Mass Index (BMI) 41.3
== END 2019-09-08 12:40 | disposition home or self-care (01) | DRG 788 ==
PROVIDERS: Obstetrics & Gynecology; Admitting Provider Obstetrics & Gynecology; PCP Family Medicine; Visit Provider Obstetrics & Gynecology
DX: O62.2 Other uterine inertia (principal); O99.214 Obesity complicating childbirth; E66.8 Other obesity; Z3A.39 39 weeks gestation of pregnancy; Z37.0 Single live birth; Z87.891 Personal history of nicotine dependence
CPT/HCPCS: 59025; 59050; 85025; 85027; 86850; 86900; 86901; 87635; 99218; J7120; A4216; G0378; J2405; U0003